=== PATIENT | male | born 1985 | race Caucasian/White ===

== ENCOUNTER 2018-07-30 22:18 | Emergency (ER) ==
[2018-07-30 22:37] VITALS: TEMP 98.4; BMI 32.1
[2018-07-30] MEDS ORDERED: TORADOL IM STA (22:56)
[2018-07-30] MEDS ORDERED: NORFLEX IM STA (22:56)
--- NOTE | 2018-07-30 23:08 | DI ---
Exam: Left shoulder three-view History: Injury and pain Findings / impression: No bony or articular abnormality of the left shoulder. Negative exam.
--- NOTE | 2018-07-30 23:16 | ED.PDOC ---
General ED Provider: Dr. DASHA MARTINEZ-ER Chief Complaint: Shoulder Pain/Injury Stated Complaint: i hurt my shoulder a month ago--it hurts to move it now and my rom is limited Time Seen by Physician: 22:25 Mode of Arrival: Walk-In Information Source: Patient Exam Limitations: No limitations Primary Care Provider: ANNIE LOWERY Nursing and Triage Documentation Reviewed and Agree: Yes Does patient meet sepsis criteria?: No System Inflammatory Response Syndrome: Not Applicable Sepsis Protocol: For patient's 13 years and over: Temp is 96.8 and below OR 101 and greater Pulse >90 BPM Resp >20/minute Acutely Altered Mental Status Are patient's symptoms suggestive of a new infection, such as: -Pneumonia -Skin, Soft Tissue -Endocarditis -UTI -Bone, Joint Infection -Implantable Device -Acute Abdominal Infection -Wound Infection -Meningitis -Blood Stream Catheter Infection -Unknown Musculoskeletal Complaint Exam - Shoulder Pain Complaint/Exam Mechanism of Injury: Reports: No known trauma Onset/Duration: 4 weeks Symptoms Are: Still present Initial Severity: Mild Current Severity: Mild Location: Reports: Discrete Character: Reports: Aching, Stiffness Alleviating: Reports: None Aggravating: Reports: Movement, Lifting, Flexion, Extension, Internal rotation, External rotation, Abduction Associated Signs and Symptoms: Denies: Swelling, Redness, Bruising, Fever, Weakness, Numbness, Tingling Septic Arthritis Risk Factors: Reports: None Related Surgical History: Reports: None Tenderness: Present: Rotator cuff muscles Limited Range of Motion: Present: Abduction, Adduction, Flexion, Extension, Internal rotation Differential Diagnoses: Rotator Cuff Injury, Sprain, Strain, Tendonitis, Bursitis Review of Systems - Review Of Systems Constitutional: Reports: No symptoms Eyes: Reports: No symptoms Ears, Nose, Mouth, Throat: Reports: No symptoms Respiratory: Reports: No symptoms Cardiac: Reports: No symptoms GI: Reports: No symptoms : Reports: No symptoms Musculoskeletal: Reports: Joint pain, Muscle pain Skin: Reports: No symptoms Neurological: Reports: No symptoms Endocrine: Reports: No symptoms Hematologic/Lymphatic: Reports: No symptoms All Other Systems: Reviewed and Negative Past Medical History - Past Medical History Previously Healthy: Yes Endocrine: Reports: Unknown Cardiovascular: Reports: Unknown Respiratory: Reports: Unknown Hematological: Reports: Unknown Gastrointestinal: Reports: Unknown Genitourinary: Reports: Unknown Neuro/Psych: Reports: Unknown Musculoskeletal: Reports: Unknown Cancer: Reports: Unknown - Surgical History General Surgical History: Reports: Unknown - Family History Family History: Reports: Unknown - Social History Smoking Status: Current every day smoker, Heavy tobacco smoker Hx Substance Use: No Alcohol Screening: None - Immunizations Tetanus Shot up to Date: Yes Physical Exam - Physical Exam Appearance: Well-appearing, No pain distress, Well-nourished Pain Distress: Mild Eyes: GENE, EOMI, Conjunctiva clear ENT: Ears normal, Nose normal, Oropharynx normal Neck: Supple Respiratory: Airway patent Cardiovascular: RRR, Pulses normal, No rub, No murmur GI/: Soft, Nontender, No masses, Bowel sounds normal, No Organomegaly Musculoskeletal: Limited ROM Skin: Warm, Dry, Normal color Neurological: Sensation intact, Motor intact, Reflexes intact, Cranial nerves intact, Alert, Oriented Psychiatric: Affect appropriate, Mood appropriate Interpretation - Radiology Interpretation Radiology Interpretation By: Radiologist Radiology Results: Negative Critical Care Note - Critical Care Note Total Time (mins): 0 Course - Course Orders, Labs, Meds: Orders Category Date Time Status Ketorolac Tromethamine [Toradol] MEDS 07/30/18 22:56 Discontinued 60 mg IM ONCE STA Orphenadrine Citrate [Norflex] MEDS 07/30/18 22:56 Discontinued 60 mg IM ONCE STA SHOULDER, LEFT MIN 2V Stat RADS 07/30/18 22:40 Completed Medications Discontinued Medications Generic Name Dose Route Start Last Admin Trade Name Freq PRN Reason Stop Dose Admin Ketorolac Tromethamine 60 mg 07/30/18 22:56 07/30/18 23:01 Toradol IM 07/30/18 22:57 60 mg ONCE STA Administration Orphenadrine Citrate 60 mg 07/30/18 22:56 07/30/18 23:01 Norflex IM 07/30/18 22:57 60 mg ONCE STA Administration Vital Signs: Temp Pulse Resp BP Pulse Ox 07/30/18 22:21 98.4 F 89 20 150/98 H 98 Departure - Departure Time of Disposition: 23:17 Disposition: HOME SELF-CARE Discharge Problem: Injury of shoulder region Instructions: Rotator Cuff Tendinitis (ED), Shoulder Pain (ED) Condition: Good Pt referred to PMD for follow-up: Yes IPMP verified?: No Additional Instructions: toradol 10mg qid prn pain #16--talk to dr lowery about mri shoulder or ortho referral Allergies/Adverse Reactions: Allergies No Known Allergies Allergy (Verified 07/30/18 22:29) Home Medications: Ambulatory Orders Amlodipine Besylate 5 mg PO DAILY 07/30/18 Disposition Discussed With: Patient, Family
[2018-07-30 23:24] VITALS: BP 140/88
== END 2018-07-30 23:20 | disposition home or self-care (01) ==
LOC: ED 22:18
DX: S49.92XA Unspecified injury of left shoulder and upper arm, initial encounter (principal); F17.210 Nicotine dependence, cigarettes, uncomplicated
CPT/HCPCS: 96372; 99282

== ENCOUNTER 2018-10-25 | Emergency (ER) | END 2018-10-26 00:30 | disposition home or self-care (01) | CPT/HCPCS: 96372; 99283 ==

== ENCOUNTER 2019-02-26 22:13 | Emergency (ER) ==
[2019-02-26 22:14] VITALS: BMI 33.0
[2019-02-26 22:25] VITALS: BP 177/123; TEMP 97.7
--- NOTE | 2019-02-26 22:30 | ED.PDOC ---
General ED Provider: Dr. DASHA MARTINEZ-ER Chief Complaint: Weakness Stated Complaint: my speech is slurred and my right arm is numb Time Seen by Physician: 22:20 Mode of Arrival: Wheelchair Information Source: Patient, Other Exam Limitations: No limitations Primary Care Provider: HESHAM HUNT Nursing and Triage Documentation Reviewed and Agree: Yes Does patient meet sepsis criteria?: No System Inflammatory Response Syndrome: Not Applicable Sepsis Protocol: For patient's 13 years and over: Temp is 96.8 and below OR 101 and greater Pulse >90 BPM Resp >20/minute Acutely Altered Mental Status Are patient's symptoms suggestive of a new infection, such as: -Pneumonia -Skin, Soft Tissue -Endocarditis -UTI -Bone, Joint Infection -Implantable Device -Acute Abdominal Infection -Wound Infection -Meningitis -Blood Stream Catheter Infection -Unknown Neurological Complaint Exam - Weakness Complaint/Exam Last Known Well: 30 min Onset: Sudden Symptoms Are: Still present Initial Severity: Mild Current Severity: Mild Alleviating: Reports: None Associated Signs and Symptoms: Denies: Nausea, Vomiting, Diaphoresis, Tinnitus, Chest pain, Short of air, Palpitations, Unsteady gait, GI blood loss, Visual changes, Decreased oral intake, Change in medication, Change in diet, OTC meds, Loss of balance Cardiac Risk Factors: Reports: Hypertension CVA Risk Factors: Reports: Hypertension JVD Present: No Carotid Bruit Present: No Nystagmus Present: No Gag Reflex Present: Yes Meningeal Signs Positive: No Focal Weakness: Present: None Focal Sensory Loss: Present: None Gait: Unsteady Babinski Sign: Negative Right, Negative Left Heel to Toe Normal: No [place]-Hallpike Test Positive: No Differential Diagnoses: Other Quality Indicator For Non-Traumatic Chest Pain/Syncope: EKG Performed Review of Systems - Review Of Systems Constitutional: Reports: No symptoms Eyes: Reports: No symptoms Ears, Nose, Mouth, Throat: Reports: No symptoms Respiratory: Reports: No symptoms Cardiac: Reports: No symptoms GI: Reports: No symptoms : Reports: No symptoms Musculoskeletal: Reports: No symptoms Skin: Reports: No symptoms Neurological: Reports: Weakness Endocrine: Reports: No symptoms Hematologic/Lymphatic: Reports: No symptoms All Other Systems: Reviewed and Negative Past Medical History - Past Medical History Previously Healthy: Yes Endocrine: Reports: Unknown Cardiovascular: Reports: Unknown Respiratory: Reports: Unknown Hematological: Reports: Unknown Gastrointestinal: Reports: Unknown Genitourinary: Reports: Unknown Neuro/Psych: Reports: Unknown Musculoskeletal: Reports: Unknown Cancer: Reports: Unknown - Surgical History General Surgical History: Reports: Unknown - Family History Family History: Reports: Unknown - Social History Smoking Status: Current every day smoker, Heavy tobacco smoker Hx Substance Use: Yes (MARIJUANA YESTERDAY) Alcohol Screening: None - Immunizations Tetanus Shot up to Date: Yes Physical Exam - Physical Exam Appearance: Well-appearing, No pain distress, Well-nourished Eyes: GENE ENT: Ears normal, Nose normal, Oropharynx normal Neck: Supple Respiratory: Airway patent, Breath sounds clear, Breath sounds equal, Respirations nonlabored Cardiovascular: RRR, Pulses normal, No rub, No murmur GI/: Soft, Nontender, No masses, Bowel sounds normal, No Organomegaly Musculoskeletal: Normal strength, ROM intact, No edema, No calf tenderness Skin: Warm, Dry, Normal color Neurological: Oriented, Alert to verbal, Alert to pain Psychiatric: Affect appropriate, Mood appropriate - NIH Stroke Scale 1a. Level of Consciousness: 0=Alert and keenly responsive 1b. Level of Consciousness Questions: 0=Answers correctly to two questions 1c. Level of Consciousness Commands: 0=Performs two tasks correctly 2. Best Gaze: 0=Normal 3. Visual: 0=No visual loss 4. Facial Palsy: 0=Normal 5a. Motor Left Arm: 0=No drift,arm holds 90 degrees for 10 sec., leg 30 degrees for 5 sec. 5b. Motor Right Arm: 0=No drift,arm holds 90 degrees for 10 sec., leg 30 degrees for 5 sec. 6a. Motor Left Le=No drift,arm holds 90 degrees for 10 sec., leg 30 degrees for 5 sec. 6b. Motor Right Le=No drift,arm holds 90 degrees for 10 sec., leg 30 degrees for 5 sec. 7. Limb Ataxia: 0=Absent 8. Sensory: 0=Normal 9. Best Language: 0=No aphasia 10. Dysarthria: 0=Normal 11. Extincion and Inattention: 0=Normal Stroke Scale Total: 0 Interpretation - Radiology Interpretation Radiology Interpretation By: Radiologist Radiology Results: Negative Exam Interpreted: CT Scan - EKG Interpretation Time of EKG #1: 23:04 Rate: Normal Rhythm: Sinus Ectopy: None [place]: [place] ST Segment: Normal Interpretation: nsr Re-Evaluation - Re-Evaluation Time of Re-Evaluation: 23:05 Status: Improved Vital Signs Stable: Yes Pain Level: 0 Appearance: NAD Lungs: Clear Skin: Warm and Dry Neuro: Alert and Oriented X3 CV: RRR Additional Comments: neuro intact...all symptoms resolved Critical Care Note - Critical Care Note Total Time (mins): 30 Course - Course Hematology/Chemistry: 02/26/19 22:21 02/26/19 22:21 Orders, Labs, Meds: Lab Review 02/26/19 02/26/19 02/26/19 22:21 22:21 22:21 WBC 7.73 RBC 4.56 L Hgb 14.0 Hct 40.1 L MCV 87.9 MCH 30.7 MCHC 34.9 RDW Coeff of Martin 12.4 Plt Count 165 Immature Gran % (Auto) 0.6 Neut % (Auto) 46.6 Lymph % (Auto) 40.2 [place] % (Auto) 6.7 Eos % (Auto) 5.3 Baso % (Auto) 0.6 Immature Gran # (Auto) 0.1 Neut # (Auto) 3.6 Lymph # (Auto) 3.1 [place] # (Auto) 0.5 Eos # (Auto) 0.4 Baso # (Auto) 0.1 PT 10.1 INR 1.01 Sodium 139.4 Potassium 3.64 Chloride 104.2 Carbon Dioxide 25.5 Anion Gap 13.34 BUN 11.3 Creatinine 0.88 Estimated GFR (MDRD) 98.00 BUN/Creatinine Ratio 12.84 Glucose 111.3 H Calcium 9.10 Total Bilirubin 0.82 AST 25.8 ALT 34.4 Alkaline Phosphatase 48.3 Total Creatine Kinase 137.6 CK-MB (CK-2) 1.460 CK-MB (CK-2) % 1.0600 Troponin I < 0.012 Total Protein 6.86 Albumin 4.68 Globulin 2.18 Albumin/Globulin Ratio 2.14 Orders Category Date Time Status EKG-(ED ONLY) Stat CARDIO 02/26/19 22:18 Ordered ED TIMERS INSPECTOR APPLIED .ONCE EMERGENCY 02/26/19 22:19 Active ED IV/MEDIPORT/POWERPORT .ONCE EMERGENCY 02/26/19 22:19 Active CBC W/ AUTO DIFF Stat LAB 02/26/19 22:21 Completed COMPREHENSIVE METABOLIC PANEL Stat LAB 02/26/19 22:21 Completed CREATINE KINASE Stat LAB 02/26/19 22:21 Completed PT WITH INR Stat LAB 02/26/19 22:21 Completed TROPONIN I Stat LAB 02/26/19 22:21 Completed 0.9 % Sodium Chloride [Saline Flush] MEDS 02/26/19 22:18 Ordered 1 syr IVF PRN PRN Amlodipine Besylate [Norvasc] MEDS 02/26/19 23:07 Stat 5 mg PO ONCE STA Aspirin [Aspirin Chewable] MEDS 02/26/19 23:07 Stat 81 mg PO ONCE STA CT HEAD W/O CONTRAST Stat RADS 02/26/19 22:19 Completed Medications Generic Name Dose Route Start Last Admin Trade Name Freq PRN Reason Stop Dose Admin Sodium Chloride 1 syr 02/26/19 22:18 Saline Flush IVF PRN PRN To flush IV ihe mentioned he is supposed to be taking 5mg of norvasc but has not beein taking it for 2mos---i wanted to transfer him to [place] but he refuses --he uinderstands risk of further cva, disability aNd even but declines transfer and wants to sign out ama Vital Signs: Temp Pulse Resp BP Pulse Ox 02/26/19 22:15 97.7 F 84 20 177/123 H 96 Departure - Departure Time of Disposition: 23:08 Disposition: AMA Discharge Problem: TIA (transient ischemic attack) Instructions: Transient Ischemic Attack (ED) Condition: Good Pt referred to PMD for follow-up: Yes IPMP verified?: No Additional Instructions: norvasc 5mg daily $30---asa daily---[facility]n Allergies/Adverse Reactions: Allergies No Known Allergies Allergy (Verified 07/30/18 22:29) Home Medications: Ambulatory Orders Alprazolam [Xanax] 0.5 mg PO BID PRN 02/26/19 Transfer Form Completed: No Disposition Discussed With: Patient, Family
--- NOTE | 2019-02-26 23:01 | CT ---
EXAM: CT brain without contrast HISTORY: Cerebrovascular accident TECHNIQUE: CT of the brain without intravenous contrast FINDINGS: There is no acute hemorrhage midline shift or mass effect. No hydrocephalus or abnormal e xtra-axial fluid collection. No significant parenchymal attenuation abnormality. The bony cranium a ppears normal. The visualized paranasal sinuses are clear. Soft tissues without significant abnormal ity. IMPRESSION: 1. CT of the brain within normal limits.
[2019-02-26] MEDS ORDERED: ASPIRIN CHEWABLE PO STA (23:07)
[2019-02-26] MEDS ORDERED: NORVASC PO STA (23:07)
== END 2019-02-26 23:20 | disposition left against medical advice (07) ==
LOC: ED 22:13
DX: G45.9 Transient cerebral ischemic attack, unspecified (principal); I10 Essential (primary) hypertension; F17.210 Nicotine dependence, cigarettes, uncomplicated; Z91.14 Patient's other noncompliance with medication regimen
CPT/HCPCS: 36415; 80053; 82550; 82553; 84484; 85025; 85610; 93005; 93010; 99284

== ENCOUNTER 2019-04-27 23:05 | Outpatient (CLI) ==
[2019-04-28 01:43] VITALS: BMI 32.5
== END 2019-04-27 23:08 | disposition critical access hospital (66) ==
LOC: AMBL 23:05
PROVIDERS: ATTEND Internal Medicine Geriatric Medicine
DX: S00.01XA Abrasion of scalp, initial encounter (principal); S01.511A Laceration without foreign body of lip, initial encounter; R41.0 Disorientation, unspecified; R26.81 Unsteadiness on feet; W22.8XXA Striking against or struck by other objects, initial encounter

== ENCOUNTER 2019-04-28 01:25 | Outpatient (CLI) ==
[2019-04-28 01:43] VITALS: BMI 32.5
== END 2019-04-28 01:30 | disposition critical access hospital (66) ==
LOC: AMBL 01:25
PROVIDERS: ATTEND Internal Medicine Geriatric Medicine
DX: R51 Headache (principal); S01.511A Laceration without foreign body of lip, initial encounter; S00.01XA Abrasion of scalp, initial encounter; Y09 Assault by unspecified means

== ENCOUNTER 2019-04-28 01:34 | Emergency (ER) ==
[2019-04-28] MEDS ORDERED: TORADOL IM STA (01:41)
[2019-04-28 01:43] VITALS: BP 166/103; TEMP 97.4; BMI 32.5
--- NOTE | 2019-04-28 01:44 | ED.PDOC ---
General ED Provider: Dr. SALEEM MURRIETA Chief Complaint: Headache Stated Complaint: Patient is a 34 year old male who was seen this evening with head injury but left AMA, returns by ambulance with frontal headaches. Time Seen by Physician: 01:41 Mode of Arrival: Ambulance Information Source: Patient Exam Limitations: No limitations Primary Care Provider: HESHAM HUNT Nursing and Triage Documentation Reviewed and Agree: Yes Does patient meet sepsis criteria?: No System Inflammatory Response Syndrome: Not Applicable Sepsis Protocol: For patient's 13 years and over: Temp is 96.8 and below OR 101 and greater Pulse >90 BPM Resp >20/minute Acutely Altered Mental Status Are patient's symptoms suggestive of a new infection, such as: -Pneumonia -Skin, Soft Tissue -Endocarditis -UTI -Bone, Joint Infection -Implantable Device -Acute Abdominal Infection -Wound Infection -Meningitis -Blood Stream Catheter Infection -Unknown Trauma/Injury Complaint Exam - Facial Injury Complaint/Exam Location of Pain: Reports: Left, Cheek, Upper lip Mechanism of Injury: Reports: Trauma Onset/Duration: 3 hour ago Symptoms Are: Still present Onset of Pain: Reports: Immediate Initial Severity: Severe Current Severity: Severe Location: Reports: Diffuse Character: Reports: Aching, Throbbing Alleviating: Reports: None Aggravating: Reports: Movement, Eating Associated Signs and Symptoms: Reports: Bruising Related History: Denies: Similar episode, Occupational injury, Recent dental work Facial Findings: Present: Swelling Face Picture: 1 - Abrasion. swelling and laceration inner lips Differential Diagnoses: Abrasion, Contusion, Laceration Review of Systems - Review Of Systems Constitutional: Reports: No symptoms Eyes: Reports: No symptoms Ears, Nose, Mouth, Throat: Reports: Mouth pain Respiratory: Reports: No symptoms Cardiac: Reports: Syncope (possible ? unknown ) GI: Reports: No symptoms : Reports: No symptoms Musculoskeletal: Reports: Neck pain (facial pain ) Skin: Reports: No symptoms Neurological: Reports: Headache Endocrine: Reports: No symptoms Hematologic/Lymphatic: Reports: No symptoms All Other Systems: Reviewed and Negative Past Medical History - Past Medical History Previously Healthy: Yes Endocrine: Reports: None Cardiovascular: Reports: Hypertension Respiratory: Reports: Asthma Hematological: Reports: None Gastrointestinal: Reports: None Genitourinary: Reports: None Neuro/Psych: Reports: Migraine, Anxiety, Depression, PTSD Musculoskeletal: Reports: Arthritis Cancer: Reports: None - Surgical History General Surgical History: Reports: None - Family History Family History: Reports: None - Social History Smoking Status: Current every day smoker, Heavy tobacco smoker Hx Substance Use: Yes (MARIJUANA) Alcohol Screening: None Physical Exam - Physical Exam Appearance: Ill-appearing Ill-appearing: Moderate Pain Distress: Severe Eyes: GENE, EOMI, Conjunctiva clear ENT: Ears normal, Nose normal, Oropharynx normal Neck: Supple Respiratory: Airway patent, Breath sounds clear, Breath sounds equal, Respirations nonlabored Cardiovascular: RRR, Pulses normal, No rub, No murmur GI/: Soft, Nontender, No masses, Bowel sounds normal, No Organomegaly Musculoskeletal: Normal strength, ROM intact, No edema, No calf tenderness Skin: Warm Neurological: Sensation intact, Motor intact, Reflexes intact, Cranial nerves intact, Alert, Oriented Psychiatric: Anxious Interpretation - Radiology Interpretation Radiology Interpretation By: Radiologist Radiology Results: Positive Exam Interpreted: CT Scan (Bilateral frontal and parafalcine sbudural hematoma without mass effect. Hairline fracture of right occipital bone.) Radiology Interpretation By: Radiologist Radiology Results: Positive Exam Interpreted: CT Scan (Sinus disease without fracture ) Xray Comments: CT C spine negative - EKG Interpretation Time of EKG #1: 03:00 Rate: Normal Rhythm: Sinus Ectopy: None [place]: NL Interpretation: possible left Atrial Enlargement , Left ventricular hypertrophy , QT prolong Re-Evaluation - Re-Evaluation Vital Signs Stable: Yes Physician Notification - Case Discussed Physician Notified: Dr. Zacarias Time of Notification: 02:55 (accepted for transfer to [facility] in [place] ) Critical Care Note - Critical Care Note Total Time (mins): 35 Course - Course Orders, Labs, Meds: Lab Review 04/28/19 04/28/19 02:10 02:10 Urine Color Yellow Urine Clarity Cloudy Urine pH 8.5 Ur Specific Bernie 1.015 Urine Protein Trace Urine Glucose (UA) Negative Urine Ketones Negative Urine Blood Negative Urine Nitrite Negative Urine Bilirubin Negative Urine Urobilinogen 0.2 Ur Leukocyte Esterase Negative Ur Squamous Epith Cells 0-2 Amorphous Sediment 1+ Urine Opiates Screen Negative Ur Oxycodone Screen Negative Urine Methadone Screen Negative Ur Propoxyphene Screen Negative Ur Barbiturates Screen Negative U Tricyclic Antidepress Negative Ur Phencyclidine Scrn Negative Ur Amphetamine Screen Negative U Methamphetamines Scrn Negative U Benzodiazepines Scrn Positive Urine Cocaine Screen Negative U Cannabinoids Screen Positive Orders Category Date Time Status EKG-(ED ONLY) Stat CARDIO 04/28/19 02:43 Completed DRUG SCREEN, URINE, RAPID Stat LAB 04/28/19 02:10 Completed URINALYSIS C & S IF INDICATED Stat LAB 04/28/19 02:10 Completed Acetaminophen [Tylenol] MEDS 04/28/19 02:59 Discontinued 1,000 mg PO ONCE STA Ketorolac Tromethamine [Toradol] MEDS 04/28/19 01:41 Stop Req 60 mg IM ONCE STA CT CERVICAL SPINE W/O CONTRAST Stat RADS 04/28/19 01:[address] HEAD W/O CONTRAST Stat RADS 04/28/19 01:[address] MAXILLOFACIAL W/O CONTRAST Stat RADS 04/28/19 01:40 Completed Medications Discontinued Medications Generic Name Dose Route Start Last Admin Trade Name Mady PRN Reason Stop Dose Admin Acetaminophen 1,000 mg 04/28/19 02:59 Tylenol PO 04/28/19 03:00 ONCE STA Ketorolac Tromethamine 60 mg 04/28/19 01:41 Toradol IM 04/28/19 01:42 ONCE STA Vital Signs: Temp Pulse Resp BP Pulse Ox 04/28/19 01:37 97.4 F L 79 20 166/103 H 97 Departure - Departure Time of Disposition: 03:11 Disposition: TSF SHORT-TRM HOSP Discharge Problem: Headache, Subdural hematoma, acute Condition: Fair Pt referred to PMD for follow-up: Yes IPMP verified?: No Allergies/Adverse Reactions: Allergies No Known Allergies Allergy (Verified 04/28/19 01:43) Home Medications: Ambulatory Orders Amlodipine Besylate 5 mg PO BID 04/27/19 Disposition Discussed With: Patient, Family
--- NOTE | 2019-04-28 02:38 | CT ---
CT cervical spine without contrast HISTORY: Post traumatic neck pain TECHNIQUE: CT of the cervical spine with multiplanar reformations. FINDINGS: Reformatted images demonstrate normal alignment with preservation of vertebral body height . No significant degenerative change. No fracture seen on the axial or reformatted images. No acut e surrounding soft tissue abnormalitites. Lung apices are clear. Right occipital skull fracture with in the field of study. IMPRESSION: No acute findings in the cervical spine.
--- NOTE | 2019-04-28 02:38 | CT ---
EXAM: CT brain without contrast HISTORY: Trauma TECHNIQUE: CT of the brain without intravenous contrast FINDINGS: Thickening and hyperdensity along the falx measuring around 3 mm. Bifrontal subdural main jt along the anterior fossa measuring 1.3 mm and 4.5 mm on the right and left respectively. No sig nificant parenchymal attenuation abnormality. Hairline fracture of the right occipital bone. Trace fluid in the right maxillary sinus. The mastoid air cells and middle ears are clear. Soft tissues wi thout significant abnormality. IMPRESSION: 1. Critical result: Bifrontal and parafalcine subdural hematoma as without mass effect. 2. Hairline fracture of the right occipital bone. The findings were discussed with ordering physician at 0234 hours Central time.
--- NOTE | 2019-04-28 02:40 | CT ---
EXAM: CT maxillofacial without intravenous contrast 04/28/2019. Sagittal and coronal reformatted im ages obtained HISTORY: Facial injury. Trauma COMPARISON: None. FINDINGS: The orbits, zygoma, nasal bones, maxilla and mandible appear intact. There is no evidence of acute facial bone fracture. The intraorbital contents are intact and symmetric. No gross soft tissue abnormality. Mucosal thickening is present within the ethmoidal and maxillary sinuses. This may represent sinusit is. IMPRESSION: 1. No evidence of acute facial bone fracture. 2. Mild mucosal thickening of the ethmoidal and maxillary sinuses which may represent sinusitis.
[2019-04-28] MEDS ORDERED: TYLENOL PO STA (02:59)
[2019-04-28] MEDS ORDERED: TRANDATE ONE (03:21)
[2019-04-28] MEDS: TRANDATE IVP STA ×2 (03:26→03:33)
== END 2019-04-28 04:00 | disposition short-term general hospital (02) ==
LOC: ED 01:34
DX: S06.5X9D Traumatic subdural hemorrhage with loss of consciousness of unspecified duration, subsequent encounter (principal); R51 Headache; M54.2 Cervicalgia; F17.210 Nicotine dependence, cigarettes, uncomplicated
CPT/HCPCS: 36415; 80306; 81001; 85025; 93005; 93010; 99285

== ENCOUNTER 2019-04-28 03:58 | Outpatient (CLI) ==
[2019-04-28 01:43] VITALS: BMI 32.5
== END 2019-04-28 04:20 | disposition short-term general hospital (02) ==
LOC: AMBL 03:58
PROVIDERS: ATTEND Internal Medicine Geriatric Medicine
DX: S02.81XA Fracture of other specified skull and facial bones, right side, initial encounter for closed fracture (principal); S06.5X9A Traumatic subdural hemorrhage with loss of consciousness of unspecified duration, initial encounter; R41.0 Disorientation, unspecified; R51 Headache; Y09 Assault by unspecified means; I10 Essential (primary) hypertension; Z91.14 Patient's other noncompliance with medication regimen

== ENCOUNTER 2021-08-17 09:58 | Observation (INO) ==
--- NOTE | 2021-08-17 10:48 | ED.PDOC ---
General ED Provider: Dr. DASHA ALVARADO Chief Complaint: Neck Pain Non-Injury Stated Complaint: Neck and shoulder pain. Pain radiates form lt C spinal area into lt shoulder down lt arm-forearm and hand with finger experiencing numbness and tingling. Pain is reproduced/worsened with cervical lateral flexion. Under care of [place] clinic in [place]. Apparently scheduled for MRI scan and Physical therapy in 2 weeks Time Seen by Provider: 08/17/21 10:40 Mode of Arrival: Walk-In Information Source: Patient Exam Limitations: Clinical condition Primary Care Provider: [facility] Nursing and Triage Documentation Reviewed and Agree: Yes Does patient meet sepsis criteria?: No System Inflammatory Response Syndrome: Not Applicable Sepsis Protocol: For patient's 13 years and over: Temp is 96.8 and below OR 101 and greater Pulse >90 BPM Resp >20/minute Acutely Altered Mental Status Are patient's symptoms suggestive of a new infection, such as: -Pneumonia -Skin, Soft Tissue -Endocarditis -UTI -Bone, Joint Infection -Implantable Device -Acute Abdominal Infection -Wound Infection -Meningitis -Blood Stream Catheter Infection -Unknown Musculoskeletal Complaint Exam Neck Pain Complaint/Exam Mechanism of Injury: Reports No known trauma Onset/Duration: Past several weeks Pain from neck into lt shoulder , radiaton - lt hand Symptoms Are: Still present Timing: Constant Episodes Lasting: Hours Initial Severity: Moderate Current Severity: Severe Location: Reports Diffuse Character: Reports Sharp, Throbbing and Burning Aggravating: Reports Position Alleviating: Reports None Associated Signs and Symptoms: Reports Paresthesia Meningitis Risk Factors: Reports None Cervical Spine Injury Risk Factors: Reports None Review of Systems Review Of Systems Constitutional: Reports No symptoms Eyes: Reports No symptoms Ears, Nose, Mouth, Throat: Reports No symptoms and Loose teeth Respiratory: Reports No symptoms Cardiac: Reports Lightheadedness and Palpitations GI: Reports No symptoms : Reports No symptoms Musculoskeletal: Reports Joint pain, Muscle pain and Neck pain Skin: Reports No symptoms Neurological: Reports Anxiety Endocrine: Reports No symptoms Hematologic/Lymphatic: Reports No symptoms All Other Systems: Reviewed and Negative [facility] Medical History (Updated 08/17/21 @ 15:23 by DASHA ALVARADO DO) Allergic sinusitis Asthma Family History Mother Hypertension FATHER Hypertension MATERNAL GRANDMOTHER Hypertension CVA (cerebral vascular accident) MATERNAL GRANDFATHER Hypertension CVA (cerebral vascular accident) Social History Smoking and tobacco status: Former smoker How long ago did patient quit smokin months ago. Alcohol intake: never Counseling given: No Substance use type: marijuana Counseling given: No Sierra/anabaptist: LATTER DAY Special sierra needs: No Agree to transfusion: Yes Household members: none Marital status: D Lives independently: Yes service: Yes branch: [employer] Current occupational status: employed Current occupation: [employer]. Current occupational exposures/hazards: Yes History of recent travel: Yes Sexually active: Yes Do you think of yourself as: straight/heterosexual Current gender identity: male Seatbelt use: always Helmet use: Yes Drives intoxicated or rides with intoxicated driver license examiner: No Firearms in home: Yes Physical Exam Physical Exam Appearance: Reports Well-appearing and Well-nourished Ill-appearing: Mild Pain Distress: Moderate Eyes: Reports GENE, EOMI, Conjunctiva clear and Conjunctiva pale ENT: Reports Ears normal, Nose normal and Oropharynx normal Neck: Supple Respiratory: Reports Airway patent, Breath sounds clear and Breath sounds equal Cardiovascular: Reports RRR, Pulses normal and No rub GI/: Reports Soft, Nontender, No masses, Bowel sounds normal and No Organomegaly Musculoskeletal: Reports Normal strength, ROM intact, No calf tenderness, Limited ROM and Limited strength Skin: Reports Warm, Dry, Normal color and Diaphoretic Neurological: Reports Sensation intact, Motor intact, Reflexes intact, Cranial nerves intact, Alert and Oriented Psychiatric: Reports Affect appropriate, Mood appropriate and Anxious Physician Notification Case Discussed Physician Notified: Dr Deluca at [place], Recommend Call [facility] for transfer Critical Care Note Critical Care Note Total Critical Care Time (mins): 60 Course Course Orders, Labs, Meds: Orders Category Date Time Status ADMIT PATIENT INPATIENT .TO MEDSURG (MONITORED BED) ADMISSION 08/17/21 15:55 Active ECHOCARDIOGRAM 2D-M MODE Routine CARDIO 08/17/21 15:43 Ordered EKG-(ED ONLY) Stat CARDIO 08/17/21 14:32 Completed EKG-(IP & OP ONLY) Routine CARDIO 08/18/21 06:00 Ordered ACTIVITY .BR with BRP CARE 08/17/21 15:43 Active BLOOD GLUCOSE MONITORING 0630,1100,1700,2100 CARE 08/17/21 15:46 Active CASE MANAGEMENT CONSULT ONCE CARE 08/17/21 15:43 Active INTAKE & OUTPUT Q8HR CARE 08/17/21 15:43 Active NPO REMINDER: IMAGING ONCE CARE 08/17/21 16:52 Ordered TELEMETRY MONITORING TELE CARE 08/17/21 15:56 Active VITAL SIGNS Q1HR CARE 08/17/21 15:51 Active VITAL SIGNS Q4HR CARE 08/17/21 15:43 Active 2 GRAM SODIUM DIET DIETARY 08/17/21 Dinner Ordered CBC W/ AUTO DIFF DAILY@0600 LAB 08/18/21 06:00 Ordered CBC W/ AUTO DIFF DAILY@0600 LAB 08/19/21 06:00 Ordered COMPREHENSIVE METABOLIC PANEL DAILY@0600 LAB 08/18/21 06:00 Ordered COMPREHENSIVE METABOLIC PANEL DAILY@0600 LAB 08/19/21 06:00 Ordered CREATINE KINASE Q8H LAB 08/17/21 22:00 Ordered CREATINE KINASE Q8H LAB 08/18/21 06:00 Ordered METANEPHRINES, FRAC PL, FREE Stat LAB 08/17/21 16:54 Ordered METANEPHRINES, FRAC, QN U24 Stat LAB 08/17/21 Ordered PT WITH INR DAILY@0600 LAB 08/18/21 06:00 Ordered PT WITH INR DAILY@0600 LAB 08/19/21 06:00 Ordered RESPIRATORY PANEL 2.1 (PCR) Stat LAB 08/17/21 16:29 Received TROPONIN I Q8H LAB 08/17/21 22:00 Ordered TROPONIN I Q8H LAB 08/18/21 06:00 Ordered Clonidine HCl [Catapres] MEDS 08/17/21 14:12 Discontinued 0.2 mg PO ONCE ONE Hydralazine HCl [Apresoline] MEDS 08/17/21 12:31 Discontinued 25 mg PO ONCE ONE Hydrocodone Bit/Acetaminophen [[place] 5-325] MEDS 08/17/21 12:38 Discontinued 1 tab PO ONCE ONE Methylprednisolone Sod Succ/Pf [Solu-Medrol 125 mg] MEDS 08/17/21 15:53 Dis continued 125 mg IVP ONCE STA Nicotine 21 mg [Nicoderm 21 mg] MEDS 08/18/21 09:00 Ordered 1 patch TD DAILY Orphenadrine Citrate [Norflex] MEDS 08/17/21 12:39 Discontinued 60 mg IM ONCE ONE Oxycodone-Acetaminophen 10-325 [Percocet 10-325] MEDS 08/17/21 15:53 Discontinued 1 tab PO ONCE STA Sodium Chloride 0.9% [Sodium Chloride] 1,000 ml MEDS 08/17/21 16:00 Active IV 125 mls/hr RESUSCITATION STATUS Routine OTHERS 08/17/21 15:43 Ordered CERVICAL SPINE, 2 OR 3 VIEWS Stat RADS 08/17/21 10:[address] ABDOMEN/PELVIS W/WO CONTRAS Stat RADS 08/17/21 16:47 Ordered MRI CERVICAL SPINE W/WO CONTR Stat RADS 08/17/21 15:54 Ordered SHOULDER, LEFT MIN 2V Stat RADS 08/17/21 10:48 Completed OT CONSULTATION Routine THERAPIES 08/17/21 Ordered PT CONSULT Routine THERAPIES 08/17/21 Ordered Medications Generic Name Dose Route Start Last Admin Trade Name Freq PRN Reason Stop Dose Admin Sodium Chloride 1,000 mls @ 125 mls/hr 08/17/21 16:00 08/17/21 16:28 Sodium Chloride IV 125 mls/hr .Q8H LAKEISHA Administration Nicotine 1 patch 08/18/21 09:00 Nicotine 21 Mg Patch.Td24 TD DAILY LAKEISHA Discontinued Medications Generic Name Dose Route Start Last Admin Trade Name Freq PRN Reason Stop Dose Admin Hydrocodone Bitart/Acetaminophen 1 tab 08/17/21 12:38 08/17/21 13:14 Hydrocodone Bit/Acetaminophen 5/325 Mg Tablet PO 08/17/21 12:39 1 tab ONCE ONE Administration Clonidine 0.2 mg 08/17/21 14:12 08/17/21 14:23 Clonidine Hcl 0.1 Mg Tablet PO 08/17/21 14:13 0.2 mg ONCE ONE Administration Hydralazine HCl 25 mg 08/17/21 12:31 08/17/21 13:14 Hydralazine Hcl 50 Mg Tablet PO 08/17/21 12:32 25 mg ONCE ONE Administration Methylprednisolone Sodium Succinate 125 mg 08/17/21 15:53 08/17/21 16:28 Methylprednisolone Sod Succ/Pf 125 Mg/2 Ml Vial IVP 08/17/21 15:54 125 mg ONCE STA Administration Orphenadrine Citrate 60 mg 08/17/21 12:39 08/17/21 13:15 Orphenadrine Citrate 60 Mg/2 Ml Vial IM 08/17/21 12:40 60 mg ONCE ONE Administration Oxycodone/Acetaminophen 1 tab 08/17/21 15:53 08/17/21 16:28 Oxycodone/Acetaminophen 10/325 Mg Tablet PO 08/17/21 15:54 1 tab ONCE STA Administration Vital Signs: Temp Pulse Resp BP Pulse Ox 08/17/21 16:59 173/115 H 08/17/21 15:00 180/129 H 08/17/21 11:23 176/109 H 08/17/21 10:06 191/128 H 08/17/21 09:59 98.1 F 102 H 17 208/129 H 97 Discharge Plan Discharge Patient Disposition: HOME SELF-CARE Discharge Problem: Cervical discogenic pain syndrome, Neck pain, Hypertensive urgency, Cervical radiculopathy Prescriptions: No Action amlodipine [Norvasc] 10 mg tablet 10 mg PO DAILY Qty: 30 RF: 0 lisinopril-hydrochlorothiazide 10-12.5 mg Tablet 10 - 12.5 tab PO DAILY RF: 0 cyclobenzaprine [Flexeril] 10 mg Tablet 10 mg PO PRN PRN (Reason: Muscle Pain) RF: 0 methylprednisolone [Medrol (Jerald)] 4 mg Tablets,Dose Pack 4 mg PO UD DOSE PK RF: 0 ibuprofen 400 mg Tablet 400 mg PO PRN PRN (Reason: Pain) RF: 0 Activity Restrictions/Additional Instructions: Admitting to hospital here; Unable to go to [place]-worried he will not have transportation ED Provider: DASHA ALVARADO Physician Progress Note: [] Chest Pain Associated symptoms: Reports dizziness and dyspnea; Denies palpitations, myalgias, fatigue, weight loss or weight gain Diet type: other ([place]) Most Recent Cardiac Tests: Chest X-Ray 07/15/21 Hypertension (Cardio) Long standing Hypertension labile with abrupt fluxations; 180-200/130s. States is compliant with prescribed therapy Type of visit: initial evaluation Onset: >1 year Current neurological symptoms: Reports headache(s), numbness and weakness Orthostatic: No Current cardiovascular symptom: reports dyspnea and dizziness; denies chest pain, palpitations or fatigue Current endocrine symptoms: Denies diaphoretic episodes, myalgias, constipation, cold intolerance, weight gain or skin change Current renal disease symptoms: reports nausea and vomiting; denies fatigue or weight loss Most Recent Cardiac Tests: Chest X-Ray 07/15/21 Monitoring BP monitoring: none BP control: unsatisfactory BP target: less than 130/80 Diet type: other ([place]) Medication compliance: good Cardiovascular Complaint Exam Hypertension Complaint/Exam Onset/Duration: 2 years Symptoms Are: Worse Timing: Constant Reported B/P Prior to Arrival: 170/110 Aggravating: Reports Exertion Alleviating: Reports None Associated Signs and Symptoms: Reports Anxiety, Headache, Numbness, Tingling and Weakness Related History: Reports Similar episode, Current Eliseo Inhibitors and Current Ca Pleitez.Bakari Related Surgical History: Reports None Cardiac Risk Factors: Reports Hypertension, Elevated lipids and Family history Recent Change in Medications: No A/V Nicking: No Papilledema Present: No JVD Present: No Carotid Bruit Present: No Differential Diagnoses: Endocrine Disorder, Hypertension and Hypertensive Urgency Quality Indicator For Non-Traumatic Chest Pain/Syncope: EKG Performed ([facility]; prolonged QT)
--- NOTE | 2021-08-17 11:21 | DI ---
EXAM: Cervical spine three view HISTORY: Neck pain COMPARISON: None TECHNIQUE: Three-view cervical spine was performed FINDINGS: Dens partially obscured on the odontoid view. Mild reversal of the normal cervical lordos is. Vertebral bodies normal height. No fracture. No subluxation. Multilevel marginal osteophyte f ormation. Mild to moderate multilevel intervertebral disc space narrowing. Multilevel uncovertebral hypertrophy. Prevertebral soft tissues appear normal. IMPRESSION: 1. Chronic discogenic degenerative disease. 2. The reversal of the normal cervical lordosis.
--- NOTE | 2021-08-17 11:21 | DI ---
EXAM: Left shoulder. Three-view HISTORY: Left shoulder pain COMPARISON: None FINDINGS: No fracture or dislocation . Mild to moderate osteoarthritis acromioclavicular joint with joint space narrowing osteophyte formation. Mild osteoarthritis glenohumeral joint. No focal soft t issue abnormality. Visualized portion of the chest is normal. IMPERSSION: 1. No fracture or dislocation. 2. Osteoarthritis
[2021-08-17] MEDS ORDERED: CATAPRES PO ONE ×2 (12:18→14:12)
[2021-08-17] MEDS ORDERED: APRESOLINE PO ONE (12:31)
[2021-08-17] MEDS ORDERED: NORCO 5-325 PO ONE (12:38)
[2021-08-17] MEDS ORDERED: NORFLEX IM ONE (12:39)
[2021-08-17] MEDS ORDERED: PERCOCET 10-325 PO STA (15:53)
[2021-08-17] MEDS ORDERED: SOLU-MEDROL 125 MG IVP STA (15:53)
[2021-08-17] MEDS: SODIUM CHLORIDE 1,000 ML IV SCH (16:28)
[2021-08-17 16:44] LABS: BORDETELLA PARAPERTUSSIS (PCR) NOT DETECTED (NOT DETECT); BORDETELLA PERTUSSIS (PCR) NOT DETECTED (NOT DETECT); CHLAMYDIA PNEUMONIAE (PCR) NOT DETECTED (NOT DETECT); CORONAVIRUS 229E (PCR) NOT DETECTED (NOT DETECT); CORONAVIRUS HKU1 (PCR) NOT DETECTED (NOT DETECT); CORONAVIRUS NL63 (PCR) NOT DETECTED (NOT DETECT); CORONAVIRUS OC43 (PCR) NOT DETECTED (NOT DETECT); HUMAN METAPNEUMOVIRUS (PCR) NOT DETECTED (NOT DETECT); HUMAN RHINOVIRUS/ENTEROV (PCR) NOT DETECTED (NOT DETECT); INFLUENZA B (PCR) NOT DETECTED (NOT DETECT); MYCOPLASMA PNEUMONIAE (PCR) NOT DETECTED (NOT DETECT); PARAINFLUENZA VIRUS 1 (PCR) NOT DETECTED (NOT DETECT); PARAINFLUENZA VIRUS 2 (PCR) NOT DETECTED (NOT DETECT); PARAINFLUENZA VIRUS 3 (PCR) NOT DETECTED (NOT DETECT); PARAINFLUENZA VIRUS 4 (PCR) NOT DETECTED (NOT DETECT); RESPIRATORY SYNCYTIAL V (PCR) NOT DETECTED (NOT DETECT); SARS_COV_2 (PCR) NOT DETECTED (NOT DETECT)
[2021-08-17] MEDS ORDERED: TRANDATE PO STA (17:27)
[2021-08-17 17:31] LABS: ADENOVIRUS (PCR) NOT DETECTED (NOT DETECT)
[2021-08-17] MEDS: TRANDATE PO SCH ×2 (17:46→20:08)
[2021-08-17 18:44] VITALS: BMI 32.7
--- NOTE | 2021-08-17 19:00 | ED.PDOC ---
General ED Provider: Dr. DASHA ALVARADO Chief Complaint: Neck Pain Non-Injury Time Seen by Provider: 08/17/21 10:40 Mode of Arrival: Walk-In Information Source: Patient Exam Limitations: No limitations Primary Care Provider: HESHAM HUNT Sepsis Protocol: For patient's 13 years and over: Temp is 96.8 and below OR 101 and greater Pulse >90 BPM Resp >20/minute Acutely Altered Mental Status Are patient's symptoms suggestive of a new infection, such as: -Pneumonia -Skin, Soft Tissue -Endocarditis -UTI -Bone, Joint Infection -Implantable Device -Acute Abdominal Infection -Wound Infection -Meningitis -Blood Stream Catheter Infection -Unknown [facility] Medical History (Updated 08/17/21 @ 18:23 by APPLE JHA RN) Allergic sinusitis Asthma Hypertension PTSD (post-traumatic stress disorder) Family History (Updated 08/17/21 @ 18:24 by APPLE JHA RN) Mother Hypertension FATHER Hypertension MATERNAL GRANDMOTHER Hypertension CVA (cerebral vascular accident) MATERNAL GRANDFATHER Hypertension CVA (cerebral vascular accident) UNCLE Cancer PATERNAL GRANDMOTHER Cancer Social History (Updated 08/17/21 @ 18:24 by APPLE JHA RN) Smoking and tobacco status: Current every day smoker Tobacco type: cigarettes Smoking packs per day: 1 Smoking cigarettes per day: 20.0 Years smoked: 17 Smoking pack-years: 17.00 How long ago did patient quit smokin months ago. Alcohol intake: never Counseling given: No Substance use type: marijuana Counseling given: No Sierra/adventist: CHRISTIAN Special sierra needs: No Agree to transfusion: Yes Household members: none Marital status: D Lives independently: Yes service: Yes branch: [employer] Current occupational status: employed Current occupation: [employer] Current occupational exposures/hazards: Yes History of recent travel: Yes Sexually active: Yes Do you think of yourself as: straight/heterosexual Current gender identity: male Seatbelt use: always Helmet use: Yes Drives intoxicated or rides with intoxicated taxi driver supervisor: No Firearms in home: Yes Course Course Hematology/Chemistry: 08/18/21 05:15 08/18/21 05:15 Orders, Labs, Meds: Lab Review 08/17/21 16:29 Adenovirus (PCR) Not detected B. pertussis DNA (PCR) Not detected B.parapertussis DNA PCR Not detected C. pneumoniae DNA (PCR) Not detected Coronavirus OC43 (PCR) Not detected Coronavirus HKU1 (PCR) Not detected Coronavirus 229E (PCR) Not detected Coronavirus NL63 (PCR) Not detected Human Metapneumovir PCR Not detected Influenza Type A (PCR) Not detected Influenza B (RT-PCR) Not detected M. pneumoniae (PCR) Not detected Parainfluenza 1 (PCR) Not detected Parainfluenza 2 (PCR) Not detected Parainfluenza 3 (PCR) Not detected Parainfluenza 4 (PCR) Not detected RSV (PCR) Not detected Entero/Rhino (PCR) Not detected SARS-CoV-2 (PCR) Not detected Orders Category Date Time Status ADMIT PATIENT INPATIENT .TO MEDSURG (MONITORED BED) ADMISSION 08/17/21 15:55 Completed EKG-(ED ONLY) Stat CARDIO 08/17/21 14:32 Completed EKG-(IP & OP ONLY) Routine CARDIO 08/18/21 06:00 Completed ACTIVITY .BR with BRP CARE 08/17/21 15:43 Completed BLOOD GLUCOSE MONITORING 0630,1100,1700,2100 CARE 08/17/21 15:46 Completed CASE MANAGEMENT CONSULT ONCE CARE 08/17/21 15:43 Completed INTAKE & OUTPUT Q8HR CARE 08/17/21 15:43 Completed NPO REMINDER: IMAGING ONCE CARE 08/17/21 16:52 Completed TELEMETRY MONITORING TELE CARE 08/17/21 15:56 Completed VITAL SIGNS Q1HR CARE 08/17/21 15:51 Completed VITAL SIGNS Q4HR CARE 08/17/21 15:43 Completed 2 GRAM SODIUM DIET DIETARY 08/17/21 Dinner Completed CBC W/ AUTO DIFF DAILY@0600 LAB 08/18/21 05:15 Completed COMPREHENSIVE METABOLIC PANEL DAILY@0600 LAB 08/18/21 05:15 Completed CREATINE KINASE Q8H LAB 08/17/21 19:57 Completed CREATINE KINASE Q8H LAB 08/18/21 05:15 Completed PT WITH INR DAILY@0600 LAB 08/18/21 05:15 Completed RESPIRATORY PANEL 2.1 (PCR) Stat LAB 08/17/21 16:29 Completed TROPONIN I Q8H LAB 08/17/21 19:57 Completed TROPONIN I Q8H LAB 08/18/21 05:15 Completed Clonidine HCl [Catapres] MEDS 08/17/21 14:12 Discontinued 0.2 mg PO ONCE ONE Hydralazine HCl [Apresoline] MEDS 08/17/21 12:31 Discontinued 25 mg PO ONCE ONE Hydrocodone Bit/Acetaminophen [[place] 5-325] MEDS 08/17/21 12:38 Discontinued 1 tab PO ONCE ONE Labetalol HCl [Trandate] MEDS 08/17/21 17:30 Discontinued 200 mg PO BID Labetalol HCl [Trandate] MEDS 08/17/21 17:27 Discontinued 200 mg PO ONCE STA Methylprednisolone Sod Succ/Pf [Solu-Medrol 125 mg] MEDS 08/17/21 15:53 Discontinued 125 mg IVP ONCE STA Nicotine 21 mg [Nicoderm 21 mg] MEDS 08/18/21 09:00 Discontinued 1 patch TD DAILY Orphenadrine Citrate [Norflex] MEDS 08/17/21 12:39 Discontinued 60 mg IM ONCE ONE Oxycodone-Acetaminophen 10-325 [Percocet 10-325] MEDS 08/17/21 15:53 Discontinued 1 tab PO ONCE STA Sodium Chloride 0.9% [Sodium Chloride] 1,000 ml MEDS 08/17/21 16:00 Discontinued IV 125 mls/hr RESUSCITATION STATUS Routine OTHERS 08/17/21 15:43 Completed CERVICAL SPINE, 2 OR 3 VIEWS Stat RADS 08/17/21 10:50 Completed SHOULDER, LEFT MIN 2V Stat RADS 08/17/21 10:48 Completed OT CONSULTATION Routine THERAPIES 08/17/21 15:19 Completed PT CONSULT Routine THERAPIES 08/17/21 Ordered Medications Discontinued Medications Generic Name Dose Route Start Last Admin Trade Name Mady PRForeign Reason Stop Dose Admin Hydrocodone Bitart/Acetaminophen 1 tab 08/17/21 12:38 08/17/21 13:14 Hydrocodone Bit/Acetaminophen 5/325 Mg Tablet PO 08/17/21 12:39 1 tab ONCE ONE Administration Amitriptyline HCl 25 mg 08/17/21 21:00 08/18/21 08:41 Amitriptyline Hcl 25 Mg Tablet PO 25 mg DAILY LAKEISHA Administration Clonidine 0.2 mg 08/17/21 14:12 08/17/21 14:23 Clonidine Hcl 0.1 Mg Tablet PO 08/17/21 14:13 0.2 mg ONCE ONE Administration Clonidine 0.2 mg 08/17/21 21:00 08/18/21 08:41 Clonidine Hcl 0.1 Mg Tablet PO 0.2 mg BID LAKEISHA Administration Diazepam 5 mg 08/17/21 19:14 Diazepam 5 Mg Tablet PO ONCE PRN Pain Diazepam 5 mg 08/17/21 19:16 Diazepam 5 Mg Tablet PO Q8H PRN Anxiety Hydralazine HCl 25 mg 08/17/21 12:31 08/17/21 13:14 Hydralazine Hcl 50 Mg Tablet PO 08/17/21 12:32 25 mg ONCE ONE Administration Sodium Chloride 1,000 mls @ 125 mls/hr 08/17/21 16:00 08/18/21 09:04 Sodium Chloride IV 125 mls/hr .Q8H LAKEISHA Administration Labetalol HCl 200 mg 08/17/21 17:27 08/17/21 17:44 Labetalol Hcl 100 Mg Tablet PO 08/17/21 17:28 Not Given ONCE STA Labetalol HCl 200 mg 08/17/21 17:30 08/18/21 08:41 Labetalol Hcl 100 Mg Tablet PO 200 mg BID LAKEISHA Administration Methylprednisolone Sodium Succinate 125 mg 08/17/21 15:53 08/17/21 16:28 Methylprednisolone Sod Succ/Pf 125 Mg/2 Ml Vial IVP 08/17/21 15:54 125 mg ONCE STA Administration Nicotine 1 patch 08/18/21 09:00 Nicotine 21 Mg Patch.Td24 TD DAILY LAKEISHA Nicotine 1 patch 08/17/21 21:00 08/17/21 20:07 Nicotine 21 Mg Patch.Td24 TD 1 patch BEDTIME LAKEISHA Administration Orphenadrine Citrate 60 mg 08/17/21 12:39 08/17/21 13:15 Orphenadrine Citrate 60 Mg/2 Ml Vial IM 08/17/21 12:40 60 mg ONCE ONE Administration Orphenadrine Citrate 100 mg 08/17/21 19:30 08/17/21 20:07 Orphenadrine Citrate 100 Mg Tablet.Er PO 100 mg Q12H LAKEISHA Administration Orphenadrine Citrate 100 mg 08/18/21 09:00 08/18/21 08:40 Orphenadrine Citrate 100 Mg Tablet.Er PO 100 mg Q12HR LAKEISHA Administration Oxycodone/Acetaminophen 1 tab 08/17/21 15:53 08/17/21 16:28 Oxycodone/Acetaminophen 10/325 Mg Tablet PO 08/17/21 15:54 1 tab ONCE STA Administration Oxycodone/Acetaminophen 1 tab 08/17/21 19:05 08/18/21 11:05 Oxycodone/Acetaminophen 10/325 Mg Tablet PO 1 tab Q6HR PRN Administration Severe Pain Vital Signs: Temp Pulse Resp BP Pulse Ox 08/17/21 16:59 173/115 H 08/17/21 15:00 180/129 H 08/17/21 11:23 176/109 H 08/17/21 10:06 191/128 H 08/17/21 09:59 98.1 F 102 H 17 208/129 H 97 DEONNA Risk Score DEONNA Risk Score: Risk Score Odds of by 30D 0 0.1 (0.1-0.2) 1 0.3 (0.2-0.3) 2 0.4 (0.3-0.5) 3 0.7 (0.6-0.9) 4 1.2 (1.0-1.5) 5 2.2 (1.9-2.6) 6 3.0 (2.5-3.6) 7 4.8 (3.8-6.1) Discharge Plan Discharge Patient Disposition: ADMITTED INPATIENT Discharge Problem: Cervical discogenic pain syndrome, Neck pain, Hypertensive urgency, Cervical radiculopathy ED Provider: DASHA ALVARADO Condition: Stable Physician Progress Note: []
[2021-08-17] MEDS ORDERED: VALIUM PO PRN ×2 (19:14→19:16)
[2021-08-17] MEDS ORDERED: NORFLEX PO SCH (19:30)
[2021-08-17] MEDS: ELAVIL PO SCH (20:07)
[2021-08-17] MEDS: PERCOCET 10-325 PO PRN (20:08)
[2021-08-17] MEDS: CATAPRES PO SCH (20:08)
[2021-08-17 20:11] LABS: CREATINE KINASE 71.5 U/L (55-170)
[2021-08-17 20:24] LABS: TROPONIN I < 0.012 ng/ml (0.0000-0.120)
[2021-08-17] MEDS ORDERED: NICODERM 21 MG TD SCH (21:00)
[2021-08-18] MEDS: SODIUM CHLORIDE 1,000 ML IV SCH ×2 (00:42→09:04)
[2021-08-18] MEDS: PERCOCET 10-325 PO PRN ×2 (05:00→11:05)
[2021-08-18 06:06] LABS: BASOPHILS % (AUTO) 0.2 % (0.0-3.0); HEMATOCRIT 43.1 % (42.0-52.0); HEMOGLOBIN 14.5 g/dl (14.0-18.0); IMMATURE GRANULOCYTE # (AUTO) 0.2 (0.0-1.0); IMMATURE GRANULOCYTE % (AUTO) 1.9 % (0.0-5.0); LYMPHOCYTES # (AUTO) 1.1 K/uL (0.60-3.4); MEAN CORPUSCULAR HEMOGLOBIN 30.7 pg (27.0-31.0); MEAN CORPUSCULAR HGB CONC 33.6 (31.8-35.4); MEAN CORPUSCULAR VOLUME 91.3 fl (80.0-94.0); MONOCYTES # (AUTO) 0.2 K/uL (0.4-2.0); MONOCYTES % (AUTO) 1.9 (0-10); NEUTROPHILS # (AUTO) 9.5 K/ul (2.0-6.9); PLATELET COUNT 196 10^3/uL (140-440); RDW COEFFICIENT OF VARIATION 12.5 % (11.6-14.8); RED BLOOD COUNT 4.72 10^6/ul (4.70-6.10); WHITE BLOOD COUNT 11.08 K/ul (4.2-10.2)
[2021-08-18 06:16] LABS: PROTHROMBIN TIME 10.4 SEC (9.3-11.0)
[2021-08-18 06:27] LABS: ALANINE AMINOTRANSFERASE 25.7 U/L (0-50); ALBUMIN 4.01 g/dL (3.5-5.0); ALKALINE PHOSPHATASE 59.8 U/L (38-126); ASPARTATE AMINO TRANSFERASE 19.2 U/L (17-59); BILIRUBIN,TOTAL 0.68 mg/dL (0.2-1.3); BLOOD UREA NITROGEN 20.5 mg/dL (9-20); CALCIUM 8.9 mg/dL (8.4-10.2); CARBON DIOXIDE 21.6 mmol/L (22-30.0); CHLORIDE 106.2 mmol/L (98-107); CREATININE 0.81 mg/dL (0.60-1.10); GLUCOSE 158.2 mg/dL (74-106); POTASSIUM 4.32 mmol/L (3.5-5.1); SODIUM 137.9 mmol/L (134.5-145); TOTAL PROTEIN 6.79 g/dL (6.3-8.2)
[2021-08-18 06:28] LABS: TROPONIN I 0.027 ng/ml (0.0000-0.120)
[2021-08-18] MEDS: CATAPRES PO SCH (08:41)
[2021-08-18] MEDS: ELAVIL PO SCH (08:41)
[2021-08-18] MEDS: TRANDATE PO SCH (08:41)
[2021-08-18] MEDS ORDERED: NORFLEX PO SCH (09:00)
[2021-08-18] MEDS ORDERED: NICODERM 21 MG TD SCH (09:00)
--- NOTE | 2021-08-18 10:14 | PCM.DC ---
Final Diagnosis: Cervical radiculopathy, left side. Hypertensive crisis - resolved. Reason for Hospitalization: Significant neck to left arm pain, elevated BP. Prognosis at Discharge: Good. Medications at Discharge: Ambulatory Orders Medication Instructions Recorded amlodipine 10 mg tablet (Norvasc) 10 mg PO DAILY #30 tab 03/20/21 cyclobenzaprine 10 mg tablet 10 mg PO PRN PRN 08/17/21 ibuprofen 400 mg tablet 400 mg PO PRN PRN 08/17/21 lisinopril 10 10 - 12.5 tab PO DAILY 08/17/21 mg-hydrochlorothiazide 12.5 mg tablet methylprednisolone 4 mg tablets in 4 mg PO UD DOSE PK 08/17/21 a dose pack (Nicholas Haddox Recordsrol (Jerald)) Lab/Diagnostics: Laboratory Tests 08/17/21 08/17/21 08/18/21 16:29 19:57 05:15 WBC 11.08 H RBC 4.72 Hgb 14.5 Hct 43.1 MCV 91.3 MCH 30.7 MCHC 33.6 RDW Coeff of Martin 12.5 Plt Count 196 Immature Gran % (Auto) 1.9 Neut % (Auto) 86.0 H Lymph % (Auto) 10.0 Wallace % (Auto) 1.9 Eos % (Auto) 0.0 Baso % (Auto) 0.2 Neut # (Auto) 9.5 H Lymph # (Auto) 1.1 Wallace # (Auto) 0.2 L Eos # (Auto) 0.0 Baso # (Auto) 0.0 Immature Gran # (Auto) 0.2 PT INR Sodium Potassium Chloride Carbon Dioxide Anion Gap BUN Creatinine Estimated GFR (MDRD) BUN/Creatinine Ratio Glucose Calcium Total Bilirubin AST ALT Alkaline Phosphatase Total Creatine Kinase 71.5 Troponin I < 0.012 Total Protein Albumin Globulin Albumin/Globulin Ratio Adenovirus (PCR) Not detected B. pertussis DNA (PCR) Not detected B.parapertussis DNA PCR Not detected C. pneumoniae DNA (PCR) Not detected Coronavirus OC43 (PCR) Not detected Coronavirus HKU1 (PCR) Not detected Coronavirus 229E (PCR) Not detected Coronavirus NL63 (PCR) Not detected Human Metapneumovir PCR Not detected Influenza Type A (PCR) Not detected Influenza B (RT-PCR) Not detected M. pneumoniae (PCR) Not detected Parainfluenza 1 (PCR) Not detected Parainfluenza 2 (PCR) Not detected Parainfluenza 3 (PCR) Not detected Parainfluenza 4 (PCR) Not detected RSV (PCR) Not detected Entero/Rhino (PCR) Not detected SARS-CoV-2 (PCR) Not detected 08/18/21 08/18/21 05:15 05:15 WBC RBC Hgb Hct MCV MCH MCHC RDW Coeff of Martin Plt Count Immature Gran % (Auto) Neut % (Auto) Lymph % (Auto) Wallace % (Auto) Eos % (Auto) Baso % (Auto) Neut # (Auto) Lymph # (Auto) Wallace # (Auto) Eos # (Auto) Baso # (Auto) Immature Gran # (Auto) PT 10.4 INR 0.98 Sodium 137.9 Potassium 4.32 Chloride 106.2 Carbon Dioxide 21.6 L Anion Gap 14.42 BUN 20.5 H Creatinine 0.81 Estimated GFR (MDRD) 107.00 BUN/Creatinine Ratio 25.30 Glucose 158.2 H Calcium 8.90 Total Bilirubin 0.68 AST 19.2 ALT 25.7 Alkaline Phosphatase 59.8 Total Creatine Kinase 55.0 Troponin I 0.027 Total Protein 6.79 Albumin 4.01 Globulin 2.78 Albumin/Globulin Ratio 1.44 Adenovirus (PCR) B. pertussis DNA (PCR) B.parapertussis DNA PCR C. pneumoniae DNA (PCR) Coronavirus OC43 (PCR) Coronavirus HKU1 (PCR) Coronavirus 229E (PCR) Coronavirus NL63 (PCR) Human Metapneumovir PCR Influenza Type A (PCR) Influenza B (RT-PCR) M. pneumoniae (PCR) Parainfluenza 1 (PCR) Parainfluenza 2 (PCR) Parainfluenza 3 (PCR) Parainfluenza 4 (PCR) RSV (PCR) Entero/Rhino (PCR) SARS-CoV-2 (PCR)
--- NOTE | 2021-08-18 10:31 | PCM.DC ---
Final Diagnosis: Cervical radiculopathy, left side. Hypertensive crisis - resolved. Reason for Hospitalization: Worsening neck pain with left arm pain. No injury. High BP, complaint with med. Monitor for cardiac reasons, serial troponins. Prognosis at Discharge: Good Condition at Discharge: Stable Medications at Discharge: Ambulatory Orders Medication Instructions Recorded amlodipine 10 mg tablet (Norvasc) 10 mg PO DAILY #30 tab 03/20/21 cyclobenzaprine 10 mg tablet 10 mg PO PRN PRN 08/17/21 ibuprofen 400 mg tablet 400 mg PO PRN PRN 08/17/21 lisinopril 10 10 - 12.5 tab PO DAILY 08/17/21 mg-hydrochlorothiazide 12.5 mg tablet methylprednisolone 4 mg tablets in 4 mg PO UD DOSE PK 08/17/21 a dose pack (Medrol (Jerald)) hydrocodone 10 mg-acetaminophen 1 tab PO Q6H PRN #12 tab 08/18/21 325 mg tablet methylprednisolone 4 mg tablets in See Rx Instructions .ROUTE 08/18/21 a dose pack (Medrol (Jerald)) .COMPLEX #21 ea Lab/Diagnostics: Laboratory Tests 08/17/21 08/17/21 08/18/21 16:29 19:57 05:15 WBC 11.08 H RBC 4.72 Hgb 14.5 Hct 43.1 MCV 91.3 MCH 30.7 MCHC 33.6 RDW Coeff of Martin 12.5 Plt Count 196 Immature Gran % (Auto) 1.9 Neut % (Auto) 86.0 H Lymph % (Auto) 10.0 [place] % (Auto) 1.9 Eos % (Auto) 0.0 Baso % (Auto) 0.2 Neut # (Auto) 9.5 H Lymph # (Auto) 1.1 [place] # (Auto) 0.2 L Eos # (Auto) 0.0 Baso # (Auto) 0.0 Immature Gran # (Auto) 0.2 PT INR Sodium Potassium Chloride Carbon Dioxide Anion Gap BUN Creatinine Estimated GFR (MDRD) BUN/Creatinine Ratio Glucose Calcium Total Bilirubin AST ALT Alkaline Phosphatase Total Creatine Kinase 71.5 Troponin I < 0.012 Total Protein Albumin Globulin Albumin/Globulin Ratio Adenovirus (PCR) Not detected B. pertussis DNA (PCR) Not detected B.parapertussis DNA PCR Not detected C. pneumoniae DNA (PCR) Not detected Coronavirus OC43 (PCR) Not detected Coronavirus HKU1 (PCR) Not detected Coronavirus 229E (PCR) Not detected Coronavirus NL63 (PCR) Not detected Human Metapneumovir PCR Not detected Influenza Type A (PCR) Not detected Influenza B (RT-PCR) Not detected M. pneumoniae (PCR) Not detected Parainfluenza 1 (PCR) Not detected Parainfluenza 2 (PCR) Not detected Parainfluenza 3 (PCR) Not detected Parainfluenza 4 (PCR) Not detected RSV (PCR) Not detected Entero/Rhino (PCR) Not detected SARS-CoV-2 (PCR) Not detected 08/18/21 08/18/21 05:15 05:15 WBC RBC Hgb Hct MCV MCH MCHC RDW Coeff of Martin Plt Count Immature Gran % (Auto) Neut % (Auto) Lymph % (Auto) [place] % (Auto) Eos % (Auto) Baso % (Auto) Neut # (Auto) Lymph # (Auto) [place] # (Auto) Eos # (Auto) Baso # (Auto) Immature Gran # (Auto) PT 10.4 INR 0.98 Sodium 137.9 Potassium 4.32 Chloride 106.2 Carbon Dioxide 21.6 L Anion Gap 14.42 BUN 20.5 H Creatinine 0.81 Estimated GFR (MDRD) 107.00 BUN/Creatinine Ratio 25.30 Glucose 158.2 H Calcium 8.90 Total Bilirubin 0.68 AST 19.2 ALT 25.7 Alkaline Phosphatase 59.8 Total Creatine Kinase 55.0 Troponin I 0.027 Total Protein 6.79 Albumin 4.01 Globulin 2.78 Albumin/Globulin Ratio 1.44 Adenovirus (PCR) B. pertussis DNA (PCR) B.parapertussis DNA PCR C. pneumoniae DNA (PCR) Coronavirus OC43 (PCR) Coronavirus HKU1 (PCR) Coronavirus 229E (PCR) Coronavirus NL63 (PCR) Human Metapneumovir PCR Influenza Type A (PCR) Influenza B (RT-PCR) M. pneumoniae (PCR) Parainfluenza 1 (PCR) Parainfluenza 2 (PCR) Parainfluenza 3 (PCR) Parainfluenza 4 (PCR) RSV (PCR) Entero/Rhino (PCR) SARS-CoV-2 (PCR) [place] [address] Diagnostic Imaging Diagnostic Imaging Report : [id number] Signed Patient: NEY YUSUF Acct:[id number] Medical Record: [id number] : 1985 Loc: ED Room/Bed: Age/Sex: 36 / M ADM Status: REG ER Date of Service: 08/17/21 Ordering Physician: DASHA ALVARADO DO Procedure(s): CERVICAL SPINE, 2 OR 3 VIEWS Report Number(s): [id number] Accession Number(s): [id number] cc: DASHA ALVARADO DO; HESHAM HUNT EXAM: Cervical spine three view HISTORY: Neck pain COMPARISON: None TECHNIQUE: Three-view cervical spine was performed FINDINGS: Dens partially obscured on the odontoid view. Mild reversal of the normal cervical lordosis. Vertebral bodies normal height. No fracture. No subluxation. Multilevel marginal osteophyte formation. Mild to moderate multilevel intervertebral disc space narrowing. Multilevel uncovertebral hypertrophy. Prevertebral soft tissues appear normal. IMPRESSION: 1. Chronic discogenic degenerative disease. 2. The reversal of the normal cervical lordosis. Education Provided to Patient and Family: Cervical radiculopathy. Hypertension. Follow-ups: [facility] PCP [facility]. Discharge Disposition: Home Hospital Course: Admitted with an acute on chronic flare of neck pain with left arm radiculopathy. He goes to [facility], has been seen for this, PT and MRI ordered. BP very high in ER, likely secondary to pain. Back to normal with medications. EKG and troponins negative. Patient felt better after overnight stay and asked to be discharged. Plan: Home. Continue ibuprofen for neck pain. Rx medrol pack and few norco. Call [facility] for appt. FRANCESCA for follow-up.
[2021-08-18 10:41] VITALS: BP 140/79; TEMP 98.2
== END 2021-08-18 12:00 | disposition home or self-care (01) ==
LOC: ED 09:58 → MEDSURG A 17:37 → INTOOBSV 17:37 → MEDSURG A 18:14
PROVIDERS: ADMIT Emergency Medicine; ATTEND Emergency Medicine
DX: R79.89 Other specified abnormal findings of blood chemistry; M50.10 Cervical disc disorder with radiculopathy, unspecified cervical region; M51.36 Other intervertebral disc degeneration, lumbar region; M79.602 Pain in left arm; R06.00 Dyspnea, unspecified; Z20.822 Contact with and (suspected) exposure to COVID-19; I10 Essential (primary) hypertension